=== PATIENT | male | born 1985 ===

== ENCOUNTER 2018-02-16 11:31 | Outpatient (CLI) | payer BC ==
--- NOTE | 2018-02-16 12:30 | RAD ---
TWO VIEW CHEST: History: Shortness of breath. FINDINGS: Lung doshi appear clear. No infiltrates seen. Heart and mediastinum unremarkable. Osseous structures are unremarkable. IMPRESSION: No acute lung process apparent. POS: [facility]
== END 2018-02-16 11:32 | disposition home or self-care (01) ==
LOC: SCSRAD 11:31
PROVIDERS: ATTEND Family Medicine
DX: R06.02 Shortness of breath (principal)
CPT/HCPCS: 71046